=== PATIENT | male | born 1940 | race Caucasian/White ===

== ENCOUNTER 2017-02-10 04:32 | Emergency (ER) | payer OTHER ==
[~2017-02-10] VITALS: Ht 177.8 cm; Wt 84.5 kg
[~2017-02-10 04:32] MED LIST: ADULT LOW STREN81 M2 PO; ANUCORT-HC25 MG PR; HYDROCHLOROTHIA25 MG PO; LIPITOR20 MG PO; METAMUCIL0.52 GM PO; MOBIC15 MG PO; PRILOSEC20 MG PO; ST. JOSEPH ASPI81 MG PO; ZESTORETIC,P1 TABLET PO
[2017-02-10 04:33] VITALS: BP 136/82
[2017-02-10] MEDS ORDERED: PEPCID20 MG PO (04:47)
== END 2017-02-10 05:16 | disposition home or self-care (01) ==
LOC: EME 04:32
DX: L50.9 Urticaria, unspecified (principal)
CPT/HCPCS: 99281; 99283; J2930

== ENCOUNTER 2018-04-23 17:17 | Emergency (ER) | payer OTHER ==
[~2018-04-23] VITALS: Ht 177.8 cm; Wt 87.0 kg
[~2018-04-23 17:17] MED LIST changes: +PEPCID20 MG PO
[2018-04-23 19:38] VITALS: BP 133/72
== END 2018-04-23 19:45 | disposition home or self-care (01) ==
LOC: EME 17:17 → RME 17:17
DX: S80.11XA Contusion of right lower leg, initial encounter (principal); S70.11XA Contusion of right thigh, initial encounter; R60.0 Localized edema; X58.XXXA Exposure to other specified factors, initial encounter; Z96.651 Presence of right artificial knee joint; Z98.890 Other specified postprocedural states; I10 Essential (primary) hypertension; Z79.82 Long term (current) use of aspirin; Z87.891 Personal history of nicotine dependence
CPT/HCPCS: 93971; 99281; 99283